=== PATIENT | male | born 1980 | race Caucasian/White ===

== ENCOUNTER 2019-01-18 12:35 | Day surgery (SDC) | payer OTHER ==
[~2019-01-18] VITALS: Ht 180.3 cm; Wt 132.2 kg
[~2019-01-18 12:35] MED LIST: None at This Time
[2019-01-18 13:02] VITALS: BP 136/90
[2019-01-18] MEDS ORDERED: LACTATED RINGERS 1,000 ML IV SCH (13:23)
[2019-01-18] MEDS ORDERED: FENTANYL PF 250 MCG/5ML ONE (14:38)
[2019-01-18] MEDS ORDERED: MIDAZOLAM 1 MG/ML, 2ML ONE (14:38)
[2019-01-18] MEDS ORDERED: DEXAMETHASONE 4 MG/ML, 1ML ONE (14:39)
[2019-01-18] MEDS ORDERED: ONDANSETRON 2MG/ML, 2ML ONE (14:39)
[2019-01-18] MEDS ORDERED: SUCCINYLCHOLINE 20 MG/ML, 10ML ONE (14:40)
[2019-01-18] MEDS ORDERED: LIDOCAINE-MPF 2% ,5ML ONE (14:40)
[2019-01-18] MEDS ORDERED: ROCURONIUM 10MG/ML,5ML ONE (14:40)
[2019-01-18] MEDS ORDERED: PROPOFOL 10 MG/ML, 20ML ONE ×2 (14:40→15:41)
[2019-01-18] MEDS ORDERED: HYDROmorphone 2 MG/ML, 1ML IVPush PRN (15:00)
[2019-01-18] MEDS ORDERED: MIDAZOLAM 1 MG/ML, 2ML IV PRN (15:00)
[2019-01-18] MEDS ORDERED: PROMETHAZINE 12.5 MG SUPP PR PRN (15:00)
[2019-01-18] MEDS ORDERED: ONDANSETRON ODT 8 MG PO PRN (15:00)
[2019-01-18] MEDS ORDERED: ACETAMINOPHEN 325 MG TABLET PO PRN (15:00)
[2019-01-18] MEDS ORDERED: MORPHINE SULFATE 4 MG/ML, 1ML IVPush PRN (15:00)
[2019-01-18] MEDS ORDERED: ONDANSETRON 2MG/ML, 2ML IV PRN (15:00)
[2019-01-18] MEDS ORDERED: LABETALOL 5MG/ML, 20ML IV PRN (15:00)
[2019-01-18] MEDS ORDERED: PROMETHAZINE 25 MG/ML, 1ML IV PRN (15:00)
[2019-01-18] MEDS ORDERED: LORazepam 2 MG/ML, 1ML IVPush PRN (15:00)
[2019-01-18] MEDS ORDERED: hydrALAzine 20 MG/ML, 1ML IV PRN (15:00)
[2019-01-18] MEDS ORDERED: HALOPERIDOL 5 MG/ML IV PRN (15:00)
[2019-01-18] MEDS ORDERED: MEPERIDINE/PF 25MG/0.5ML IVPush PRN (15:00)
[2019-01-18] MEDS ORDERED: OXYcodone 5 MG/5 ML ORAL.SOL UDC PO PRN (15:00)
[2019-01-18] MEDS ORDERED: FENTANYL PF 100 MCG/2ML IV PRN (15:00)
[2019-01-18] MEDS ORDERED: ALBUTEROL SULFATE 2.5 MG/3 ML NPPB PRN (15:00)
[2019-01-18] MEDS ORDERED: EPHEDRINE 50 MG/ML, 1ML IVPush PRN (15:00)
[2019-01-18] MEDS ORDERED: BUPIVACAINE/EPI 0.5% 1:200K ONE (15:21)
[2019-01-18] MEDS ORDERED: HYDROcodone/APAP 5/325 TABLET ONE (18:04)
[2019-01-18] MEDS ORDERED: HYDROcodone/APAP 5/325 TABLET PO PRN (18:30)
== END 2019-01-18 18:15 | disposition home or self-care (01) ==
LOC: OUT 12:35
PROVIDERS: ATTEND Podiatrist Foot & Ankle Surgery
DX: M25.871 Other specified joint disorders, right ankle and foot (principal); M65.871 Other synovitis and tenosynovitis, right ankle and foot; E66.9 Obesity, unspecified; Z68.41 Body mass index [BMI] 40.0-44.9, adult
CPT/HCPCS: 29898; 64445; J0330; J1100; J2250; J2405; J2704; J3010; J7120

== ENCOUNTER 2020-03-13 09:03 | Day surgery (SDC) | payer OTHER ==
[~2020-03-13] VITALS: Ht 180.3 cm; Wt 128.7 kg
[2020-03-13] MEDS ORDERED: LACTATED RINGERS 1,000 ML IV SCH (09:34)
[2020-03-13] MEDS ORDERED: CHLORHEXIDINE 15 ML UDC ONE (09:39)
[2020-03-13] MEDS ORDERED: CHLORHEXIDINE 15 ML UDC MM ONE (10:00)
[2020-03-13 10:02] VITALS: BP 133/88
[2020-03-13] MEDS ORDERED: FENTANYL PF 100 MCG/2ML ONE (10:34)
[2020-03-13] MEDS ORDERED: MIDAZOLAM 1 MG/ML, 2ML ONE (10:35)
[2020-03-13] MEDS ORDERED: FENTANYL PF 100 MCG/2ML IV PRN (11:00)
[2020-03-13] MEDS ORDERED: PROMETHAZINE 25 MG/ML, 1ML IVPush PRN (11:00)
[2020-03-13] MEDS ORDERED: LORazepam 2 MG/ML, 1ML IVPush PRN (11:00)
[2020-03-13] MEDS ORDERED: MEPERIDINE/PF 25MG/0.5ML IVPush PRN (11:00)
[2020-03-13] MEDS ORDERED: ACETAMINOPHEN 325 MG TABLET PO PRN (11:00)
[2020-03-13] MEDS ORDERED: OXYcodone 5 MG/5 ML ORAL.SOL UDC PO PRN (11:00)
[2020-03-13] MEDS ORDERED: LIDOCAINE 1%, 20ML ONE (11:15)
[2020-03-13] MEDS ORDERED: BUPIVACAINE/PF-EPI 0.5% 1:200K ONE (11:15)
[2020-03-13] MEDS ORDERED: ONDANSETRON 2MG/ML, 2ML ONE (11:47)
[2020-03-13] MEDS ORDERED: DEXAMETHASONE 4 MG/ML, 1ML ONE (11:47)
[2020-03-13] MEDS ORDERED: PROPOFOL 10 MG/ML, 20ML ONE (11:47)
[2020-03-13] MEDS ORDERED: KETOROLAC 30 MG/1 ML ONE (11:47)
[2020-03-13] MEDS ORDERED: CEFAZOLIN 1,000 MG ONE ×2 (11:47)
[2020-03-13] MEDS ORDERED: BUPIVACAINE/PF 0.5% ONE (11:47)
[2020-03-13] MEDS ORDERED: LIDOCAINE-MPF 2% ,5ML ONE (11:47)
== END 2020-03-13 14:00 | disposition home or self-care (01) ==
LOC: OUT 09:03
PROVIDERS: ATTEND Podiatrist Foot & Ankle Surgery
DX: M25.871 Other specified joint disorders, right ankle and foot (principal); Z11.59 Encounter for screening for other viral diseases; M25.371 Other instability, right ankle; M65.871 Other synovitis and tenosynovitis, right ankle and foot; M24.671 Ankylosis, right ankle; L90.5 Scar conditions and fibrosis of skin; E66.9 Obesity, unspecified; Z68.37 Body mass index [BMI] 37.0-37.9, adult; Z79.891 Long term (current) use of opiate analgesic; Z79.899 Other long term (current) drug therapy; Z98.890 Other specified postprocedural states
CPT/HCPCS: 29897; 64445; 64447; 87635; J0690; J1100; J1885; J2250; J2405; J2704; J3010; J7120